=== PATIENT | male | born 1970 ===

== ENCOUNTER 2021-06-26 14:47 | Emergency (ER) | payer OTHER ==
[2021-06-27] MEDS ORDERED: ONDANSETRON 4 MG ODT TAB PO ONE (02:16)
[2021-06-27] MEDS ORDERED: ALUM-MAG HYDROXIDE-SIMETHICONE 200-200-20MG/5ML ORAL LIQD 30 ML PO ONE (02:16)
[2021-06-27] MEDS ORDERED: FAMOTIDINE 20 MG TAB PO ONE (02:17)
[2021-06-27] MEDS ORDERED: LIDOCAINE VISCOUS 2% 15 ML ORAL LIQD PO ONE (02:17)
--- NOTE | 2021-06-27 02:27 | Emergency Department Report ---
ED Abdominal Pain HPI - General Chief Complaint: Arrhythmia/Palpitations Stated Complaint: COVID+/WEAKNESS/PAIN IN STOMACH/PALPATATIONS Time Seen by Provider: 06/27/21 02:01 Source: patient Mode of arrival: Ambulatory Limitations: No Limitations - History of Present Illness Initial Comments: 50-year-old male with a past medical history of HIV with undetectable viral load status post polypectomy x2 presents to the hospital complaining of epigastric abdominal pain and nausea for the past 2 weeks. Patient states that epigastric burning pain has been more constant for the last 6 days. Sometimes is radiation to the chest and lower abdomen. Pain is worse with food intake and taking Tylenol. Patient had the first dose of Covid vaccine 2 weeks ago but last week had symptoms and diagnosis of Covid. Since Covid symptoms have completely resolved however, patient is concerned that his Tylenol intake during his Covid symptoms might be the cause of his abdominal pain. He currently denies fever, vomiting, melena, hematochezia, or diarrhea. Is not currently taking anything for pain. He is compliant with HIV medication. He complains of some residual fatigue secondary to Covid - Related Data Previous Rx's Medication Instructions Recorded Last Taken Type Famotidine [Pepcid] 20 mg PO BID #20 tablet 06/27/21 Unknown Rx Mag Hydrox/Aluminum Hyd/Simeth 15 ml PO QID PRN #1 bottle 06/27/21 Unknown Rx [Maalox Advanced Suspension] Ondansetron [Zofran Odt] 4 mg PO Q8HR PRN #15 tab.rapdis 06/27/21 Unknown Rx Allergies Allergy/AdvReac Type Severity Reaction Status Date / Time No Known Allergies Allergy Unverified 06/26/21 16:38 ED Review of Systems ROS: Stated complaint: COVID+/WEAKNESS/PAIN IN STOMACH/PALPATATIONS Other details as noted in HPI Comment: All other systems reviewed and negative ED Past Medical Hx - Past Medical History Previous Medical History?: Yes Hx HIV: Yes - Surgical History Past Surgical History?: Yes Additional Surgical History: Colonoscopy with polypectomy x 19 September 2020 in March 2021 - Medications Home Medications: Home Medications Medication Instructions Recorded Confirmed Last Taken Type Famotidine [Pepcid] 20 mg PO BID #20 tablet 06/27/21 Unknown Rx Mag Hydrox/Aluminum Hyd/Simeth 15 ml PO QID PRN #1 bottle 06/27/21 Unknown Rx [Maalox Advanced Suspension] Ondansetron [Zofran Odt] 4 mg PO Q8HR PRN #15 tab.rapdis 06/27/21 Unknown Rx ED Physical Exam - General Limitations: No Limitations - Other Other exam information: General: No acute distress Head: Atraumatic Eyes: normal appearance ENT: Moist mucous membranes Neck: Normal appearance, no midline tenderness Chest: Clear to auscultation bilaterally CV: Regular rate and rhythm. Heart rate 88 Abdomen: Soft, normal bowel sounds, very minimal epigastric tenderness, nondistended, no rebound or guarding. No Altman sign Back: Normal inspection Extremity: Normal inspection, full range of motion Neuro: Alert O x 3, no facial asymmetry, speech clear, no gross motor sensory deficit Psych: Appropriate behavior Skin: No rash ED Course Vital Signs 06/26/21 06/27/21 06/27/21 16:40 01:24 01:31 Temperature 98.9 F Pulse Rate 109 H 87 83 Respiratory 18 18 13 Rate Blood Pressure 134/89 Blood Pressure 121/84 [Right] O2 Sat by Pulse 100 99 Oximetry 06/27/21 06/27/21 06/27/21 01:45 02:01 02:15 Temperature Pulse Rate 85 86 89 Respiratory 12 12 16 Rate Blood Pressure 125/83 123/83 132/94 Blood Pressure [Right] O2 Sat by Pulse 100 100 100 Oximetry 06/27/21 06/27/21 06/27/21 02:31 02:45 03:01 Temperature Pulse Rate 84 87 89 Respiratory 12 15 14 Rate Blood Pressure 126/84 120/80 117/82 Blood Pressure [Right] O2 Sat by Pulse 99 99 99 Oximetry 06/27/21 06/27/21 06/27/21 03:15 03:31 03:45 Temperature Pulse Rate 90 82 83 Respiratory 15 17 12 Rate Blood Pressure 125/84 141/96 113/85 Blood Pressure [Right] O2 Sat by Pulse 99 98 99 Oximetry 06/27/21 06/27/21 04:01 04:15 Temperature Pulse Rate 84 77 Respiratory 14 14 Rate Blood Pressure 110/77 111/76 Blood Pressure [Right] O2 Sat by Pulse 99 99 Oximetry ED Medical Decision Making - Lab Data Result diagrams: 06/27/21 03:08 06/27/21 03:08 Lab Results 06/27/21 06/27/21 Range/Units 03:08 03:08 WBC 6.1 (4.5-11.0) K/mm3 RBC 4.57 (3.65-5.03) M/mm3 Hgb 14.5 (11.8-15.2) gm/dl Hct 41.7 (35.5-45.6) % MCV 91 (84-94) fl MCH 32 (28-32) pg MCHC 35 H (32-34) % RDW 13.8 (13.2-15.2) % Plt Count 348 (140-440) K/mm3 Lymph % (Auto) 40.4 H (13.4-35.0) % Smith % (Auto) 10.7 H (0.0-7.3) % Eos % (Auto) 0.6 (0.0-4.3) % Baso % (Auto) 0.1 (0.0-1.8) % Lymph # (Auto) 2.4 (1.2-5.4) K/mm3 Smith # (Auto) 0.7 (0.0-0.8) K/mm3 Eos # (Auto) 0.0 (0.0-0.4) K/mm3 Baso # (Auto) 0.0 (0.0-0.1) K/mm3 Seg Neutrophils % 48.2 (40.0-70.0) % Seg Neutrophils # 2.9 (1.8-7.7) K/mm3 Sodium 134 L (137-145) mmol/L Potassium 3.6 (3.6-5.0) mmol/L Chloride 99.6 (98-107) mmol/L Carbon Dioxide 25 (22-30) mmol/L Anion Gap 13 mmol/L BUN 15 (9-20) mg/dL Creatinine 0.9 (0.8-1.3) mg/dL Estimated GFR > 60 ml/min BUN/Creatinine Ratio 17 % Glucose 105 H (75-100) mg/dL Calcium 8.9 (8.4-10.2) mg/dL Total Bilirubin 0.50 (0.1-1.2) mg/dL AST 17 (5-40) units/L ALT 22 (7-56) units/L Alkaline Phosphatase 56 (35-129) units/L Total Protein 7.6 (6.3-8.2) g/dL Albumin 3.9 (3.9-5) g/dL Albumin/Globulin Ratio 1.1 % Lipase 39 (13-60) units/L - EKG Data -: EKG Interpreted by Me EKG shows normal: sinus rhythm Rate: tachycardia (103) - Medical Decision Making Patient received Pepcid, Maalox, lidocaine in the ED with improvement in symptoms. Labs unremarkable. Since suggestive of gastritis/GERD. Patient will be discharged and treated symptomatically with outpatient follow-up recommended Critical Care Time: No Critical care attestation.: If time is entered above; I have spent that time in minutes in the direct care of this critically ill patient, excluding procedure time. ED Disposition Clinical Impression: GERD (gastroesophageal reflux disease) Disposition: TO HOME OR SELFCARE Is pt being admited?: No Does the pt Need Aspirin: No Condition: Stable Instructions: Gastroesophageal Reflux Disease, Adult Additional Instructions: Take the medication as prescribed. Follow-up with your doctor or doctor/clinic provided. Return if symptoms worsen as indicated by your discharge instructions. Thurston el medicamento segn lo recetado. Seguimiento con jorge mdico o mdico/clnica proporcionado. Regrese si los sntomas empeoran segn lo indicado por poonam instrucciones de dave. Prescriptions: Mag Hydrox/Aluminum Hyd/Simeth [Maalox Advanced Suspension] 15 ml PO QID PRN #1 bottle PRN Reason: Indigestion Famotidine [Pepcid] 20 mg PO BID #20 tablet Ondansetron [Zofran Odt] 4 mg PO Q8HR PRN #15 tab.rapdis PRN Reason: Nausea And Vomiting Referrals: NELLIE ABERNATHY MD [Primary Care Provider] - 3-5 Days Print Language: SETSWANA
[2021-06-27 03:28] LABS: Basophils % (Auto) 0.1 % (0.0-1.8); Eosinophils % (Auto) 0.6 % (0.0-4.3); Hematocrit 41.7 % (35.5-45.6); Hemoglobin 14.5 gm/dl (11.8-15.2); Lymphocytes # (Auto) 2.4 K/mm3 (1.2-5.4); Lymphocytes % (Auto) 40.4 % (13.4-35.0); Mean Corpuscular HGB Conc 35 % (32-34); Mean Corpuscular Volume 91 fl (84-94); Monocytes # (Auto) 0.7 K/mm3 (0.0-0.8); Monocytes % (Auto) 10.7 % (0.0-7.3); Platelet Count 348 K/mm3 (140-440); Red Blood Count 4.57 M/mm3 (3.65-5.03); Red Cell Distribution Width 13.8 % (13.2-15.2)
[2021-06-27 03:42] LABS: Alanine Aminotransferase 22 units/L (7-56); Albumin 3.9 g/dL (3.9-5); BUN/Creatinine Ratio 17; Blood Urea Nitrogen 15 mg/dL (9-20); Calcium 8.9 mg/dL (8.4-10.2); Hemolysis Index 3
[2021-06-27 04:21] VITALS: BP 111/76
--- NOTE | 2021-06-27 10:11 | Electrocardiograph Report ---
[facility] Test Date: 2021-06-26 Test Time: 16:42:00 Pat Name: MITCHELL CANALES Department: Room: Gender: M Net Developer With [employer]: SEAN SIMMONSB: 1970 Requested By: CHANDU GAMEZ Order Number: [id number] Reading MD: Alex Shukla Measurements Intervals [place] Rate: 103 P: 70 TX: 123 QRS: 65 QRSD: 76 T: 38 QT: 342 QTc: 448 Interpretive Statements Sinus tachycardia No previous ECG available for comparison Electronically Signed On 06-27-2021 10:10:55 EDT by Alex Shukla
== END 2021-06-28 16:40 | disposition home or self-care (01) ==
LOC: ED 14:47
DX: K21.9 Gastro-esophageal reflux disease without esophagitis (principal); R10.9 Unspecified abdominal pain; R53.1 Weakness; B20 Human immunodeficiency virus [HIV] disease; Z98.890 Other specified postprocedural states
CPT/HCPCS: 36415; 80053; 83690; 85025; 93005; 99283; Q0162

== ENCOUNTER 2021-06-30 15:46 | Emergency (ER) | payer OTHER ==
--- NOTE | 2021-06-30 17:26 | XRay Report ---
CHEST 2 VIEWS INDICATION / CLINICAL INFORMATION: SOB. COMPARISON: None available. FINDINGS: SUPPORT DEVICES: None. HEART / MEDIASTINUM: No significant abnormality. LUNGS / PLEURA: No significant pulmonary abnormality. No significant pleural effusion. No pneumothora x. ADDITIONAL FINDINGS: No significant additional findings. IMPRESSION: 1. No acute abnormality of the chest. Signer Name: Ramin Zimmerman MD Signed: 06/30/2021 5:21 PM Workstation Name: [id number]
--- NOTE | 2021-06-30 17:35 | Event Note ---
ED Screening Note Date of service: 06/30/21 Time: 17:33 ED Screening Note: 50-year-old male with a past medical history of HIV and BPH presents to the ER today with complaints of epigastric/left upper abdominal pain and generalized weakness. Patient states that he started with the abdominal pain last week but yesterday noticed that he has been having black stools. He reports intermittent palpitations but mainly when his abdominal pain flares up. He denies any chest pain or shortness of breath. He denies any nausea, vomiting or diarrhea. He states that he is not on any blood thinners. He denies alcohol abuse. He denies any illicit drug use or tobacco use. He denies any NSAID abuse. He states that his viral load is undetectable, but he is unsure of his last CD4 count but he has been compliant with his antiviral medication. He states that he had a colonoscopy one in August, and another one earlier this year and he had polyps removed but they were noncancerous. This initial assessment/diagnostic orders/clinical plan/treatment(s) is/are subject to change based on patients health status, clinical progression and re- assessment by fellow clinical providers in the ED. Further treatment and workup at subsequent clinical providers discretion. Patient/guardian urged not to elope from the ED as their condition may be serious if not clinically assessed and managed. Initial orders include: Labs including EKG and chest x-ray
[2021-06-30 18:00] LABS: Basophils % (Auto) 0.1 % (0.0-1.8); Eosinophils % (Auto) 0.2 % (0.0-4.3); Hematocrit 42.1 % (35.5-45.6); Hemoglobin 14.7 gm/dl (11.8-15.2); Lymphocytes # (Auto) 1.7 K/mm3 (1.2-5.4); Lymphocytes % (Auto) 26.8 % (13.4-35.0); Mean Corpuscular HGB Conc 35 % (32-34); Mean Corpuscular Volume 92 fl (84-94); Monocytes # (Auto) 0.6 K/mm3 (0.0-0.8); Platelet Count 338 K/mm3 (140-440); Red Blood Count 4.58 M/mm3 (3.65-5.03); Red Cell Distribution Width 13.5 % (13.2-15.2)
[2021-06-30 18:10] LABS: Alanine Aminotransferase 19 units/L (7-56); Albumin 4.2 g/dL (3.9-5); BUN/Creatinine Ratio 15; Blood Urea Nitrogen 15 mg/dL (9-20); Calcium 9.2 mg/dL (8.4-10.2); Hemolysis Index 11
[2021-06-30 20:29] VITALS: BP 119/79
[2021-06-30] MEDS ORDERED: SUCRALFATE 1 GM TAB PO ONE (21:44)
[2021-06-30] MEDS ORDERED: ONDANSETRON 4 MG ODT TAB PO ONE (21:44)
[2021-06-30] MEDS ORDERED: DICYCLOMINE 20 MG TAB PO ONE (21:44)
[2021-06-30] MEDS ORDERED: FAMOTIDINE 20 MG TAB PO ONE (21:44)
--- NOTE | 2021-06-30 22:47 | Emergency Department Report ---
ED Abdominal Pain HPI - General Chief Complaint: Arrhythmia/Palpitations Stated Complaint: BLACK STOOLS, SOB,PALPITATION Source: patient Mode of arrival: Ambulatory Limitations: No Limitations - History of Present Illness Initial Comments: Patient is a 50-year-old male with a history of HIV and GERD who presents to the ED with complaint of acute onset persistent epigastric pain for the last 6 days. Patient states that he was initially evaluated in this ED about 6 days ago and has been taking antacids, antiemetics and Pepto-Bismol. Patient states that in the last 2 days, he noticed that he was having intermittent black tarry stools and decided come to the ED for evaluation. Patient denies vomiting, diarrhea, dizziness, syncope, chest pain or shortness of breath, fever, chills, dysuria, urinary frequency and urgency, hematochezia, constipation, hematemesis or cough. MD Complaint: abdominal pain (epigastric pain), other (black stools) -: Sudden, days(s) (6) Location: epigastric Radiation: none Migration to: no migration Severity: moderate Severity scale (0 -10): 5 Quality: aching, dull Consistency: constant Improves With: nothing Worsens With: eating Associated Symptoms: denies other symptoms, nausea, anorexia. denies: vomiting, diarrhea, fever, chills, constipation, dysuria, hematemesis, hematochezia, melena, hematuria, syncope, other Treatments Prior to Arrival: NSAIDs, antacids, other (Peptobismal) - Related Data Previous Rx's Medication Instructions Recorded Last Taken Type Famotidine [Pepcid] 20 mg PO BID #20 tablet 06/27/21 Unknown Rx Mag Hydrox/Aluminum Hyd/Simeth 15 ml PO QID PRN #1 bottle 06/27/21 Unknown Rx [Maalox Advanced Suspension] Ondansetron [Zofran Odt] 4 mg PO Q8HR PRN #15 tab.rapdis 06/27/21 Unknown Rx Dicyclomine [Bentyl] 20 mg PO Q6H PRN #30 tablet 06/30/21 Unknown Rx Sucralfate [Carafate] 1 gm PO Q6HR #120 tablet 06/30/21 Unknown Rx Allergies Allergy/AdvReac Type Severity Reaction Status Date / Time No Known Allergies Allergy Verified 06/30/21 21:49 ED Review of Systems ROS: Stated complaint: BLACK STOOLS, SOB,PALPITATION Other details as noted in HPI Constitutional: denies: chills, fever Eyes: denies: eye pain, eye discharge, vision change ENT: denies: ear pain, throat pain Respiratory: denies: cough, shortness of breath, wheezing Cardiovascular: denies: chest pain, palpitations Endocrine: no symptoms reported Gastrointestinal: abdominal pain (epigastric pain), nausea, other (black stool). denies: vomiting, diarrhea Genitourinary: denies: urgency, dysuria Musculoskeletal: denies: back pain, joint swelling, arthralgia Skin: denies: rash, lesions Neurological: denies: headache, weakness, paresthesias Psychiatric: denies: anxiety, depression Hematological/Lymphatic: denies: easy bleeding, easy bruising ED Past Medical Hx - Past Medical History Previous Medical History?: Yes Hx HIV: Yes - Surgical History Additional Surgical History: Colonoscopy with polypectomy x 19 September 2020 in March 2021 - Medications Home Medications: Home Medications Medication Instructions Recorded Confirmed Last Taken Type Famotidine [Pepcid] 20 mg PO BID #20 tablet 06/27/21 Unknown Rx Mag Hydrox/Aluminum Hyd/Simeth 15 ml PO QID PRN #1 bottle 06/27/21 Unknown Rx [Maalox Advanced Suspension] Ondansetron [Zofran Odt] 4 mg PO Q8HR PRN #15 tab.rapdis 06/27/21 Unknown Rx Dicyclomine [Bentyl] 20 mg PO Q6H PRN #30 tablet 06/30/21 Unknown Rx Sucralfate [Carafate] 1 gm PO Q6HR #120 tablet 06/30/21 Unknown Rx ED Physical Exam - General Limitations: No Limitations General appearance: alert, in no apparent distress - Head Head exam: Present: atraumatic, normocephalic, normal inspection - Eye Eye exam: Present: normal appearance, PERRL, EOMI Pupils: Present: normal accommodation - ENT ENT exam: Present: normal exam, normal orophraynx, mucous membranes moist, TM's normal bilaterally, normal external ear exam - Neck Neck exam: Present: normal inspection, full ROM - Respiratory Respiratory exam: Present: normal lung sounds bilaterally. Absent: respiratory distress, wheezes, rales, stridor, chest wall tenderness, accessory muscle use, decreased breath sounds, prolonged expiratory - Cardiovascular Cardiovascular Exam: Present: normal rhythm, tachycardia, normal heart sounds. Absent: systolic murmur, diastolic murmur, rubs, gallop - GI/Abdominal GI/Abdominal exam: Present: soft, tenderness (Palpable mild epigastric tenderness), normal bowel sounds. Absent: distended, guarding, rebound, hyperactive bowel sounds, hypoactive bowel sounds - Extremities Exam Extremities exam: Present: normal inspection, full ROM, normal capillary refill - Back Exam Back exam: Present: normal inspection, full ROM. Absent: tenderness, CVA tenderness (R), CVA tenderness (L), muscle spasm, paraspinal tenderness, vertebral tenderness - Neurological Exam Neurological exam: Present: alert, oriented X3, CN II-XII intact, normal gait, reflexes normal - Psychiatric Psychiatric exam: Present: normal affect, normal mood, anxious - Skin Skin exam: Present: warm, dry, intact, normal color. Absent: rash ED Course Vital Signs 06/30/21 06/30/21 17:07 20:27 Temperature 98.2 F 98.4 F Pulse Rate 108 H 94 H Respiratory 18 16 Rate Blood Pressure 119/79 Blood Pressure 101/77 [Right] O2 Sat by Pulse 98 100 Oximetry ED Medical Decision Making - Lab Data Result diagrams: 06/30/21 17:21 06/30/21 17:21 - Radiology Data Radiology results: report reviewed, image reviewed [address] [address] XRay Report Signed Patient: MITCHELL CANALES MR#: [id number] : 1970 Acct:[id number] Age/Sex: 50 / M ADM Date: 06/30/21 Loc: ED Attending Dr: Ordering Physician: SHARMILA JUAREZ Date of Service: 06/30/21 Procedure(s): XR chest routine 2V Accession Number(s): [id number] cc: SHARMILA JUAREZ Fluoro Time In Minutes: CHEST 2 VIEWS INDICATION / CLINICAL INFORMATION: SOB. COMPARISON: None available. FINDINGS: SUPPORT DEVICES: None. HEART / MEDIASTINUM: No significant abnormality. LUNGS / PLEURA: No significant pulmonary abnormality. No significant pleural effusion. No pneumothorax. ADDITIONAL FINDINGS: No significant additional findings. IMPRESSION: 1. No acute abnormality of the chest. Signer Name: Ramin Zimmerman MD Signed: 06/30/2021 5:21 PM Workstation Name: [id number] Transcribed By: MN Dictated By: Ramin Zimmerman MD Electronically Authenticated By: Ramin Zimmerman MD Signed Date/Time: 06/30/211720 DD/ 20 TD/TT: - Medical Decision Making This is a 50-year-old male with a history of HIV and GERD who presents to the ED with complaint of acute onset persistent epigastric pain for the last 6 days. Patient states that he was initially evaluated in this ED about 6 days ago and has been taking antacids, antiemetics and Pepto-Bismol. Patient states that in the last 2 days, he noticed that he was having intermittent black tarry stools and decided come to the ED for evaluation. In the ED, patient is alert and oriented x3 and is not in any distress. Patient was treated in the ED for pain, also given antacids and antiemetics. Lab test results were reviewed and are all nonactionable. Chest x-ray shows no acute cardiopulmonary abnormalities or pneumonitis. Patient the history and physical exam findings, the patient symptoms are likely due to GERD complications and the black tarry stools are as a result of the patient taking bottles of Pepto-Bismol suspensions for pain. Patient was therefore discharged home on pain medications and more antacids and advised to stop taking Pepto-Bismol but to take antacids and antiemetics as previously prescribed. Patient was also given a referral to the GI physician Dr. Yusuf Eller for follow-up in 3 to 5 days. Patient was advised to contact Dr. Yusuf Eller's office first thing in the morning on Saturday, July 03, 2021 to schedule a follow-up appointment. Patient was otherwise advised return to the ED immediately if symptoms get worse. - Differential Diagnosis GERD; Gastritis; Gastric ulcers; PUD Critical care attestation.: If time is entered above; I have spent that time in minutes in the direct care of this critically ill patient, excluding procedure time. ED Disposition Clinical Impression: Abdominal pain, acute, epigastric GERD (gastroesophageal reflux disease) Qualifiers: Esophagitis presence: esophagitis presence not specified Qualified Code(s): K21.9 - Gastro-esophageal reflux disease without esophagitis Disposition: HOME / SELF CARE / HOMELESS Is pt being admited?: No Does the pt Need Aspirin: No Condition: Stable Instructions: Food Choices for Gastroesophageal Reflux Disease, Adult, Heartburn, [id number], Abdominal Pain, Adult, [id number], Gastroesophageal Reflux Disease, Adult, [id number] Additional Instructions: All lab test results were reviewed and are all nonactionable. Chest x-ray shows no acute cardiopulmonary abnormalities or pneumonitis. Your symptoms are likely due to persistent GERD complications. The "black stools" was due to the Pepto- Bismol medication that you have been taking. Therefore stop taking Pepto-Bismol or any an NSAID such as ibuprofen or Aleve, take the other previously prescribed medications, follow-up with the GI physician Dr. Yusuf Eller for further evalua tion with endoscopy. Contact Dr. Yusuf Eller office first thing in the morning on Saturday July 03, 2021 to schedule a follow-up appointment. Return to the ED immediately if symptoms get worse. Prescriptions: Dicyclomine [Bentyl] 20 mg PO Q6H PRN #30 tablet PRN Reason: Abdominal pain Sucralfate [Carafate] 1 gm PO Q6HR #120 tablet Referrals: YUSUF ELLER MD [Staff Physician] - 3-5 Days [facility] [Provider Group] - 7-10 days Time of Disposition: 22:49 Print Language: BERMUDIAN
--- NOTE | 2021-07-05 17:16 | Electrocardiograph Report ---
[facility] Test Date: 2021-06-30 Test Time: 16:58:07 Pat Name: MITCHELL CANALES Department: ED Room: Gender: M [employer] Maker: [id number] : 1970 Requested By: PEYTON GARCIA Order Number: [id number] Reading MD: Shaggy Manuel Measurements Intervals [place] Rate: 103 P: 73 GA: 128 QRS: 52 QRSD: 78 T: 12 QT: 342 QTc: 449 Interpretive Statements Sinus tachycardia Compared to ECG 06/26/2021 16:42:00 No significant changes Electronically Signed On 07-05-2021 17:16:13 EDT by Shaggy Manuel
== END 2021-06-30 23:20 | disposition home or self-care (01) ==
LOC: ED 15:46
DX: K21.9 Gastro-esophageal reflux disease without esophagitis (principal); Z98.890 Other specified postprocedural states; Z79.899 Other long term (current) drug therapy
CPT/HCPCS: 36415; 71046; 80053; 83735; 84484; 85025; 86850; 86900; 86901; 93005; 99283; Q0162

== ENCOUNTER 2021-07-02 18:13 | Emergency (ER) | payer OTHER | END 2021-07-03 12:33 | disposition home or self-care (01) | LOC: ED 18:13 | CPT/HCPCS: 36415; 74177; 80048; 80076; 82271; 83690; 83735; 85025; 93005; 93970; 96361; 96374; 96375; 99284; J2270; J2405; J7030; Q9967 ==